=== PATIENT | male | born 1965 | race Caucasian/White ===

== ENCOUNTER 2017-11-24 21:28 | Emergency (ER) | payer SELFPAY, OTHER ==
[2017-11-24 23:08] LABS: #Basophils 0.1 thou/uL (0.0-0.2); #Eosinphils 0.2 thou/uL (0.0-0.7); #Lymphocytes 1.4 thou/uL (1.20-3.40); #Monocytes 0.4 thou/uL (0.11-0.59); #Neutrophils 1.8 thou/uL (1.40-6.50); %Basophils 1.3 % (0.0-1.0); %Eosinophils 4.1 % (0.0-10.0); %Lymphocytes 36.8 % (21.0-51.0); %Monocytes 11.4 % (0.0-10.0); %Neutrophils 46.4 % (42.0-75.0); Hemoglobin 13.7 g/dL (14.0-18.0); Mean Corpuscular HGB CONC 34.9 g/dL (32.0-36.0); Mean Corpuscular Hemoglobin 34.2 pg (27.0-31.0); Mean Corpuscular Volume 97.9 fl (80.0-94.0); Mean Platelet Volume 6.8 fL (7.4-10.4); Platelet Count 179 thou/uL (130-400); RBC Distribution Width 12.1 % (11.5-14.5); Red Blood Cell (RBC) Count 4.02 mill/uL (4.70-6.10); White Blood Cell (WBC) Count 3.8 thou/uL (4.8-10.8)
[2017-11-24 23:31] LABS: Anion Gap 15 mmol/L (10-20); BUN (Urea Nitrogen) 9 mg/dL (8.9-20.6); CK (CPK) 200 U/L (30-200); Calc. Creatinine Clearance 0 mL/min (70-130); Calcium 9.2 mg/dL (7.8-10.44); Carbon Dioxide 25 mmol/L (22-29); Chloride 100 mmol/L (98-107); Estimated GFR-MDRD Greater than 90; Glucose 91 mg/dL (70-105); Potassium 3.8 mmol/L (3.5-5.1); Sodium 136 mmol/L (136-145)
[2017-11-24 23:36] LABS: CKMB 4.1 ng/mL (0-6.6); Troponin I Less than 0.010 ng/mL (< 0.028)
[2017-11-24] MEDS ORDERED: Ibuprofen 200 MG TAB ONE (23:49)
== END 2017-11-25 00:05 | disposition home or self-care (01) ==
LOC: ERS 21:28
DX: S29.011A Strain of muscle and tendon of front wall of thorax, initial encounter (principal); S21.102A Unspecified open wound of left front wall of thorax without penetration into thoracic cavity, initial encounter; I25.2 Old myocardial infarction; K21.9 Gastro-esophageal reflux disease without esophagitis; I10 Essential (primary) hypertension; F17.220 Nicotine dependence, chewing tobacco, uncomplicated; X50.1XXA Overexertion from prolonged static or awkward postures, initial encounter
CPT/HCPCS: 36415; 80048; 82553; 84484; 85025; 93005

== ENCOUNTER 2018-04-21 12:49 | Emergency (ER) | payer OTHER, SELFPAY ==
[2018-04-21] MEDS ORDERED: Ketorolac Tromethamine 60 MG/2 ML VIAL ONE (13:55)
== END 2018-04-21 16:43 | disposition home or self-care (01) ==
LOC: ERS 12:49
DX: M54.5 Low back pain (principal); Z71.6 Tobacco abuse counseling; I25.2 Old myocardial infarction; K21.9 Gastro-esophageal reflux disease without esophagitis; I10 Essential (primary) hypertension; Z86.73 Personal history of transient ischemic attack (TIA), and cerebral infarction without residual deficits; Z87.891 Personal history of nicotine dependence; Z79.899 Other long term (current) drug therapy
CPT/HCPCS: 96372; 99406; J1885

== ENCOUNTER 2018-06-30 19:22 | Emergency (ER) | payer SELFPAY ==
[2018-06-30] MEDS ORDERED: Ketorolac Tromethamine 60 MG/2 ML VIAL ONE (22:27)
[2018-06-30] MEDS ORDERED: predniSONE 20 MG TAB ONE (23:18)
== END 2018-06-30 23:13 | disposition home or self-care (01) ==
LOC: ERS 19:22
DX: S39.012A Strain of muscle, fascia and tendon of lower back, initial encounter (principal); I25.2 Old myocardial infarction; K21.9 Gastro-esophageal reflux disease without esophagitis; I10 Essential (primary) hypertension; Z86.73 Personal history of transient ischemic attack (TIA), and cerebral infarction without residual deficits; F17.220 Nicotine dependence, chewing tobacco, uncomplicated; Z79.899 Other long term (current) drug therapy; X50.9XXA Other and unspecified overexertion or strenuous movements or postures, initial encounter
CPT/HCPCS: 96372; J1885; J7506

== ENCOUNTER 2018-08-01 19:04 | Observation (INO) | payer SELFPAY ==
[2018-08-01] MEDS ORDERED: Ondansetron ODT 4 MG TAB PO PRN (20:34)
[2018-08-01] MEDS ORDERED: Nitroglycerin 0.4 MG TAB (25 Tab Bottle) PO PRN (20:34)
[2018-08-01] MEDS ORDERED: Ondansetron PF 4 MG/2 ML Vial IVP PRN (20:34)
[2018-08-01] MEDS ORDERED: Nicotine 14 MG PATCH TD SCH (20:45)
--- NOTE | 2018-08-01 22:17 | HP ---
PRIMARY CARE PHYSICIAN: None. CHIEF COMPLAINT: Chest pain. HISTORY OF PRESENT ILLNESS: Mr. 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 He had denied any shortness of breath, abdominal pain, nausea, vomiting. He states at that time that he had quit working and was told by his boss that he needed to go to the emergency department for further workup. He states that he had not gone to the ED like he was supposed to, he had stated that he had gone into work earlier today and his chest pain was still present, he states the shop closed down early due to rain and that is when he had sought further medical attention in the emergency department earlier today. He states that he has a history of GERD and hypertension, he also reports a history of "small heart attack and small stroke" in the past. However, last CT of brain in 2017 was unremarkable, last stress test that is documented also in 2017 was unremarkable at that time. He states he was told that he should take different medications for his blood pressure and his elevated cholesterol, however, he states that he has a long history of being noncompliant and not taking medication as he is supposed to. He states he is unable to afford the medication and when he was taking the medication, he would forget the dose for several days in a row and then start taking his medication after several missed doses. He also reports that he does not have a primary care physician at this time. His EKG was unremarkable and showed normal sinus rhythm with a rate of 83. He was started on sublingual nitroglycerin 0.4 mg, however, he states that he had noticed a little to no pain relief. His initial troponin was found to be less than 0.010. AST and ALT are elevated at 155 and 190 respectively. Sodium is slightly low at 131. He was then transferred from the [facility] to [facility] for further workup of his symptoms, upon arrival, it was noticed that his blood pressure had been elevated at 155/105, however, recheck showed an improvement of his blood pressure without medications. At this time, it was determined that he would be admitted under observation for further workup of his chest pain. The patient had also informed me that he has a chronic alcohol use. He states that earlier today before he sought further medical attention he had drank six 16-ounce beers, he states this is his usual daily alcohol intake after work. It is determined at this time that he will be admitted under observation for further workup and management of his symptoms. REVIEW OF SYSTEMS: All other systems reviewed and found to be negative unless mentioned in the HPI. PAST MEDICAL HISTORY: The patient reports a past medical history of myocardial infarction, which was mild in the past, gastroesophageal reflux disease, hypertension, and mild stroke, however, was not able to tell me where he was diagnosed with his recent myocardial infarction and mild stroke, he also has a history of noncompliance. PAST SURGICAL HISTORY: None. PSYCHIATRIC HISTORY: Denies any psychiatric history at this time. SOCIAL HISTORY: The patient admits to chewing tobacco 110 every three days, he also reports drinking every day, about six 16-ounce beers each day, however, denies any further illicit drug use. ALLERGIES: NONE. CURRENT HOME MEDICATIONS: None. PHYSICAL EXAMINATION: VITAL SIGNS: Blood pressure 148/90, pulse 82, respirations 18, temp 98.3, O2 saturations 94% on room air. GENERAL: The patient is awake, alert, and oriented x3. No acute distress noted. HEENT: Atraumatic, normocephalic. Pupils are round and reactive to light. Extraocular muscles intact. Moist mucous membranes noted. NECK: Soft and supple. No JVD noted. CARDIOVASCULAR: Positive S1 and S2. Regular rate and rhythm. No murmurs auscultated. RESPIRATORY: Clear to auscultation bilaterally. No wheezes, rales, or rhonchi. ABDOMEN: Soft, nontender. Bowel sounds present. MUSCULOSKELETAL: Strength 5+ bilaterally, upper and lower extremities. Moves all extremities equal. No edema noted. NEUROLOGICAL: Cranial nerves 2 through 12 grossly intact. No focal deficits noted. Gait not assessed. PSYCHIATRIC: Good mood and affect. No suicidal or homicidal ideation noted. SKIN: Warm, dry, and intact. He does have a 0.5 cm x 0.5 cm round and large like lesion beside his right eyebrow, nontender, soft, mobile. The patient states that this is chronic and he has had this for several years. LABORATORY DATA: WBC 4.4, RBC 4.22, hemoglobin 13.4, platelet 166. Sodium 131, potassium 3.9, anion gap 15, BUN 5, creatinine 0.69, estimated GFR greater than 90, glucose 99, AST 155, ALT 90, troponin less than 0.010 x1. DIAGNOSTIC IMAGING: Chest x-ray showed no acute cardiopulmonary abnormalities. ASSESSMENT/PLAN: 1. Atypical chest pain, we will rule out cardiac etiology with stress test and echocardiogram, trend troponins. He has had several hospitalizations in the past with similar symptoms and it was determined at that time that the pain was likely secondary to cervical radiculopathy. This could also likely be this case, however, we will rule out cardiac etiology. 2. History of alcohol abuse, placed on ASE and check plasma alcohol level. Strongly encouraged sobriety. 3. Tobacco abuse, placed on nicotine patch and strongly encouraged tobacco cessation. 4. Hypertension, monitor vital signs closely and add p.r.n. medications as needed. The patient has a history of noncompliance in the past. Blood pressure currently stable at this time. 5. History of gastroesophageal reflux disease, placed on IV Protonix daily and monitor for symptoms. 6. Deep venous thrombosis and gastrointestinal prophylaxis. 7. Code status, full code. DISPOSITION: Pending further workup and clinical findings. Job ID: [id number]
[2018-08-01 23:40] LABS: Troponin I Less than 0.010 ng/mL (< 0.028)
[2018-08-01] MEDS: Acetaminophen 325 MG TAB PO PRN (23:41)
[2018-08-02] MEDS ORDERED: Diazepam 5 MG TAB PO PRN (00:47)
[2018-08-02] MEDS ORDERED: Diazepam 5 MG TAB PO SCH (01:00)
[2018-08-02] MEDS ORDERED: Thiamine HCl 200 MG/2 ML VIAL IM SCH (01:00)
[2018-08-02 02:20] LABS: Hemoglobin 13.1 g/dL (14.0-18.0); Mean Corpuscular HGB CONC 33.3 g/dL (32.0-36.0); Mean Corpuscular Hemoglobin 33.1 pg (27.0-31.0); Mean Corpuscular Volume 99.4 fL (78.0-98.0); Mean Platelet Volume 7.1 fL (7.4-10.4); Platelet Count 147 thou/uL (130-400); RBC Distribution Width 12.1 % (11.5-14.5); Red Blood Cell (RBC) Count 3.96 mill/uL (4.70-6.10); White Blood Cell (WBC) Count 3.8 thou/uL (4.8-10.8)
[2018-08-02 02:40] LABS: Troponin I Less than 0.010 ng/mL (< 0.028)
[2018-08-02 02:43] LABS: Eosinophils 4 % (0-10); Lymphocytes 20 % (21-51); MDiff Complete? YES; Monocytes 13 % (0-10); Neutrophil 62 % (42-75); Reactive Lymphocytes 1 % (0-10)
[2018-08-02 02:53] LABS: Anion Gap 15 mmol/L (10-20); BUN (Urea Nitrogen) 5 mg/dL (8.4-25.7); Calc. Creatinine Clearance 0 mL/min (70-130); Calcium 9.2 mg/dL (7.8-10.44); Carbon Dioxide 24 mmol/L (22-29); Cardiac Risk 1.5 (Less than 4.5); Chloride 101 mmol/L (98-107); Cholesterol 160 mg/dl (< 200 Desired); Estimated GFR-MDRD Greater than 90; Glucose 92 mg/dL (70-105); HDL Cholesterol 105 mg/dL (>60 Neg Risk); LDL Cholesterol, Calculated 49 mg/dL; Potassium 3.9 mmol/L (3.5-5.1); Sodium 136 mmol/L (136-145); Triglycerides 32 mg/dL (Less than 150)
[2018-08-02 03:37] VITALS: BMI 22.8
[2018-08-02] MEDS ORDERED: Folic Acid 1 MG TAB PO SCH (09:00)
[2018-08-02] MEDS ORDERED: Multivitamin W/ Minerals 1 TAB PO SCH (09:00)
[2018-08-02] MEDS ORDERED: Enoxaparin Sodium 40 MG/0.4 ML SYRINGE SC SCH (09:00)
[2018-08-02] MEDS ORDERED: Pantoprazole 40 MG VIAL IVP SCH (09:00)
[2018-08-02] MEDS ORDERED: ADENOSINE 60 MG/20 ML VIAL ONE (09:38)
[2018-08-02] MEDS: Acetaminophen 325 MG TAB PO PRN (11:39)
--- NOTE | 2018-08-02 12:21 | NM ---
RADIONUCLIDE STRESS AND REST MYOCARDIAL PERFUSION SCAN WITH CT ATTENUATION CORRECTION AND SPECT IMAGI NG WITH LEFT VENTRICULAR WALL MOTION EVALUATION AND EJECTION FRACTION: HISTORY: Chest pain. FINDINGS: Adenosine protocol. There is homogeneous uptake of radiotracer throughout the left ventricular myocar dium. No focal perfusion defect or reversibility. QGS analysis of gated SPECT images shows no focal wall motion abnormalities. Ejection fraction is sveta culated at 70%. IMPRESSION: 1. Normal myocardial perfusion scan. 2. Normal LVEF. POS: OLEG
[2018-08-02] MEDS ORDERED: cloNIDine 0.1 MG TAB PO PRN (13:07)
[2018-08-02] MEDS ORDERED: Lisinopril 10 MG TAB PO SCH ×2 (13:45→21:00)
[2018-08-02 14:52] VITALS: BP 152/89
[2018-08-02 15:21] VITALS: TEMP 98.3
--- NOTE | 2018-08-02 18:39 | DIS ---
DATE OF ADMISSION: 08/01/2018 DATE OF DISCHARGE: 08/02/2018 DISCHARGE DISPOSITION: Home. FOLLOWUP: Follow up with [facility] in 1 week. ALLERGIES: NO KNOWN DRUG ALLERGIES. DISCHARGE MEDICATIONS: Same as admission medication. 1. Amlodipine 5 mg daily. 2. Lipitor 40 mg at bedtime. 3. Lisinopril 10 mg daily. 4. Bactroban ointment as directed. 5. Clonidine was added as needed for systolic blood pressure more than 180. The patient was extensively counseled to quit alcohol. The patient was seen and examined on the day of discharge. Denies any new complaints. No chest pain, shortness of breath, or palpitations reported. BRIEF HOSPITAL COURSE: The patient is a 53-year-old male with past medical history of hypertension, GERD, and alcoholism, presented to the hospital with chest discomfort. Please refer to the history and physical for further details. The patient was admitted to the hospital with a diagnosis of chest discomfort, rule out acute coronary syndrome. His serial troponins were negative. His blood alcohol level was 295. He underwent Cardiolite stress test that was negative for reversible ischemia. Ejection fraction was 70% without any wall motion abnormalities. Echocardiogram was also ordered by the admitting physician, which is pending at this time. The patient was advised to follow up on the echocardiogram report. He was extensively counseled to quit alcohol. Lifetime modification including tobacco cessation was emphasized. FINAL DIAGNOSES: 1. Chest discomfort, acute coronary syndrome ruled out. 2. Chronic alcoholism with alcohol intoxication. 3. Macrocytosis. The patient was advised to start [id number] thiamine, folic acid, and multivitamin. 4. Hypertension. 5. Gastroesophageal reflux disease. 6. Coronary artery disease per the patient's report. 7. The patient was advised to follow up with his primary care physician within a week. He will also benefit from a low-dose aspirin. Job ID: [id number]
[2018-08-03] MEDS ORDERED: Diazepam 5 MG TAB PO PRN (04:00)
[2018-08-03] MEDS ORDERED: Magnesium Oxide 400 MG TAB PO SCH (09:00)
--- NOTE | 2018-08-05 13:13 | EKG ---
Test Reason : Blood Pressure : / mmHG Vent. Rate : 084 BPM Atrial Rate : 084 BPM P-R Int : 140 ms QRS Dur : 086 ms QT Int : 380 ms P-R-T Axes : 057 067 050 degrees QTc Int : 449 ms Normal sinus rhythm Normal ECG Confirmed by QUYNH ARNOLD DO ([id number]), assignment editor BRIGETTE KANG ([id number] on 08/05/2018 1:12:54 PM Referred By: Confirmed By:QUYNH ARNOLD DO
== END 2018-08-02 18:28 | disposition home or self-care (01) ==
LOC: ERS 19:04 → 2SW 19:40
PROVIDERS: ADMIT Hospitalist; ATTEND Hospitalist
DX: R07.89 Other chest pain (principal); I10 Essential (primary) hypertension; K21.9 Gastro-esophageal reflux disease without esophagitis; F10.229 Alcohol dependence with intoxication, unspecified; I25.10 Atherosclerotic heart disease of native coronary artery without angina pectoris; D75.89 Other specified diseases of blood and blood-forming organs; E78.00 Pure hypercholesterolemia, unspecified; I25.2 Old myocardial infarction; F17.220 Nicotine dependence, chewing tobacco, uncomplicated; L98.9 Disorder of the skin and subcutaneous tissue, unspecified; Z86.73 Personal history of transient ischemic attack (TIA), and cerebral infarction without residual deficits; Z91.14 Patient's other noncompliance with medication regimen; Y90.8 Blood alcohol level of 240 mg/100 ml or more
CPT/HCPCS: 36415; 78452; 80048; 80061; 80307; 85025; 90471; 90686; 93005; 93017; 93306; 96372; 96374; A9500; C9113; G0008; G0378; J0153; J1650; J3411; J3475; J7050

== ENCOUNTER 2023-05-01 09:26 | Emergency (ER) | payer SELFPAY ==
[2023-05-01 12:26] LABS: Bilirubin Negative (Negative); Blood, Urine Negative (Negative); CAUTI Indications for Culture Acute Hematuria; Clarity Clear (Clear); Glucose, Urine (Dipstick) Normal (Negative); Ketone, Urine Negative (Negative); Leukocyte Negative Leu/uL (Negative); Nitrite Negative (Negative); Protein, Urine (Dipstick) 20 mg/dL (Neg-Trace); RBC/HPF 0-3 HPF (0-3); Squamous Epithelial None Seen HPF (0-3); Urobilinogen Normal mg/dL (Less than 2); WBC/HPF 0-3 HPF (0-3); pH, Urine 7.5 (5.0-9.0)
[2023-05-01 12:29] LABS: Bacteria/HPF 1+ HPF (None Seen); Sperm/HPF 4+ HPF (None Seen); Urine Culture Reflex No No
[2023-05-01] MEDS ORDERED: Ketorolac Tromethamine 30 MG/ML VIAL ONE (12:30)
== END 2023-05-01 12:38 | disposition home or self-care (01) ==
LOC: ERS 09:26
DX: M54.41 Lumbago with sciatica, right side (principal); I10 Essential (primary) hypertension; F17.220 Nicotine dependence, chewing tobacco, uncomplicated; Z86.73 Personal history of transient ischemic attack (TIA), and cerebral infarction without residual deficits
CPT/HCPCS: 81001; 96372; 99283; J1885

== ENCOUNTER 2024-07-09 15:40 | Emergency (ER) | payer SELFPAY ==
[2024-07-09] MEDS ORDERED: fentaNYL 50 mcg/mL 1 mL Vial ONE (16:29)
== END 2024-07-09 22:12 | disposition home or self-care (01) ==
LOC: ERS 15:40
DX: M25.551 Pain in right hip (principal); M87.051 Idiopathic aseptic necrosis of right femur; I10 Essential (primary) hypertension; F17.220 Nicotine dependence, chewing tobacco, uncomplicated; W18.30XA Fall on same level, unspecified, initial encounter; Y93.01 Activity, walking, marching and hiking; Z86.73 Personal history of transient ischemic attack (TIA), and cerebral infarction without residual deficits
CPT/HCPCS: 96374; J3010